=== PATIENT | male | born 1955 | race Caucasian/White ===

== ENCOUNTER 2017-03-16 22:19 | Observation (INO) | payer MEDICARE, OTHER ==
[~2017-03-16] VITALS: Ht 165.1 cm; Wt 80.7 kg
[~2017-03-16 22:19] MED LIST: ANTIBIOTICS; THYROID MED
[2017-03-16] MEDS ORDERED: SOD CHLORIDE 0.9% 1,000 ML IV STA (23:41)
[2017-03-16 23:59] LABS: ADD SCAN DIFF NO
[2017-03-17 00:02] LABS: ABNORMAL IP MESSAGE 1; BASOPHILS % 0.3 % (0.0-2.0); EOSINOPHILS % 0.6 % (0.0-7.0); HEMATOCRIT 24.7 % (42.0-52.0); HEMOGLOBIN 8.5 g/dl (14.0-18.0); LYMPHOCYTES # 0.5 10^3/ul (0.8-2.9); LYMPHOCYTES % 16.3 % (15.0-51.0); MEAN CORPUSCULAR HEMOGLOBIN 33.9 pg (29.0-33.0); MEAN CORPUSCULAR HGB CONC 34.4 g/dl (32.0-37.0); MEAN CORPUSCULAR VOLUME 98.4 fl (82.0-101.0); MEAN PLATELET VOLUME 10.7 fl (7.4-10.4); MONOCYTE # 0.2 10^3/ul (0.3-0.9); MONOCYTES % 7.7 % (0.0-11.0); NEUTROPHIL # 2.3 10^3/ul (1.6-7.5); NEUTROPHILS % 74.5 % (39.0-77.0); PLATELET COUNT 165 10^3/UL (140-415); RED BLOOD COUNT 2.51 10^6/ul (4.70-6.10); RED CELL DISTRIBUTION WIDTH 16.1 % (11.5-14.5); WHITE BLOOD COUNT 3.1 10^3/ul (4.8-10.8)
[2017-03-17 00:27] LABS: PARTIAL THROMBOPLASTIN TIME 31.5 Sec (25.0-35.0)
[2017-03-17 00:29] LABS: INR 1.13; PROTIME 14.5 Sec (12.2-14.2); PT RATIO 1.1
[2017-03-17 00:30] LABS: ALANINE AMINOTRANSFERASE 39 IU/L (13-69); ALBUMIN 4.3 g/dl (3.3-4.9); ALBUMIN/GLOBULIN RATIO 1.43; ALKALINE PHOSPHATASE 110 IU/L (42-121); ANION GAP 18 (8-16); ASPARTATE AMINO TRANSFERASE 30 IU/L (15-46); BILIRUBIN,INDIRECT 1.7 mg/dl (0-1.1); BILIRUBIN,TOTAL 1.7 mg/dl (0.2-1.3); BLOOD UREA NITROGEN 26 mg/dl (7-20); CALCIUM 8.2 mg/dl (8.4-10.2); CARBON DIOXIDE 24 mmol/L (21-31); CHLORIDE 94 mmol/L (97-110); CREATININE 2.11 mg/dl (0.61-1.24); GLUCOSE 178 mg/dl (70-220); SODIUM 133 mmol/L (135-144); TOTAL PROTEIN 7.3 g/dl (6.1-8.1)
[2017-03-17 00:34] LABS: ADD UMIC YES; UR BILIRUBIN (Dip) NEGATIVE (NEGATIVE); UR BLOOD (Dip) 2+ (NEGATIVE); UR CLARITY CLEAR (CLEAR); UR COLOR LT. YELLOW (YELLOW); UR GLUCOSE (Dip) NEGATIVE (NEGATIVE); UR KETONES (Dip) NEGATIVE (NEGATIVE); UR LEUKOCYTE ESTERASE (Dip) NEGATIVE (NEGATIVE); UR NITRITE (Dip) NEGATIVE (NEGATIVE); UR TOTAL PROTEIN (Dip) 1+ (NEGATIVE); UR UROBILINOGEN (Dip) 2.0 E.U./dL (0.1-1.0)
[2017-03-17 00:40] LABS: TROPONIN-I < 0.012 ng/ml (0.00-0.12)
[2017-03-17 00:46] LABS: UR SQUAMOUS EPITHELIAL CELL FEW
[2017-03-17 00:47] LABS: UR BACTERIA RARE
--- NOTE | 2017-03-17 00:48 | RADRPT ---
PROCEDURE: XR Chest. CLINICAL INDICATION: Syncope. TECHNIQUE: Portable AP view of the chest was obtained. COMPARISON: 11/17/2014 FINDINGS: The cardiomediastinal silhouette is mildly enlarged but unchanged. Round noncalcified nodule within the center of the right lung is estimated at 1.6 cm not evident previously, the left lung appears c lear. There is no evidence for pleural effusion, pneumothorax or pulmonary vascular congestion. Th e osseous structures are intact with no evidence for acute abnormality. Calcification within the aor ta is again seen RPTAT:HJJR IMPRESSION: 1. Concern for interval development of a 1.6 cm noncalcified right mid lung nodule compared to the prior examination. Follow-up evaluation is recommended. 2. Stable mild cardiac silhouette enlargement. 3. Aortic atherosclerosis is present. Physician Lavonne Date Time Electronically viewed and signed by Physician Lavonne on 03/17/2017 00:48 /
[2017-03-17] MEDS ORDERED: SOD CHLORIDE 0.9% 1,000 ML IV ONE (02:00)
[2017-03-17] MEDS ORDERED: DOCUSATE SODIUM 100 MG CAP PO PRN (04:30)
[2017-03-17] MEDS ORDERED: NACL 0.9% 3 ML SYG IV SCH (04:30)
[2017-03-17] MEDS ORDERED: ACETAMINOPHEN 325 MG TAB PO PRN (04:30)
[2017-03-17] MEDS ORDERED: ONDANSETRON 4 MG INJ IV PRN (04:30)
[2017-03-17] MEDS ORDERED: BISACODYL (EC) 5 MG TAB PO PRN (04:30)
--- NOTE | 2017-03-17 05:04 | HP ---
Date/Time of Note Date/Time of Note DATE: 03/17/17 TIME: 04:58 Assessment/Plan VTE Prophylaxis VTE Prophylaxis Intervention: SCD's Assessment/Plan Chief Complaint/Hosp Course This is a 61-year-old male being admitted to the telemetry floor for: #1 syncope: Cardiac versus neurovascular versus hypovolemia versus hypoglycemia. The patient denies loss of consciousness or hitting his head, however I do believe that he is a poor historian. At this time I will order a CAT scan of the head without contrast, carotid Doppler ultrasound, and echocardiogram. Patient does appear slightly dehydrated which also could have been the cause. Continue IV fluids. #2 Renal failure: Likely chronic at this time secondary to the creatinine being 2.11. He does not have any prior history or prior creatinine records at her facility. Will hold BP medications at this time secondary to recent syncope. Will consult nephrology. #3 Cancer: Patient did not know exactly will cancer he had but are likely appears he may have underlying leukemia. Will try to obtain further records. Patient is on revlimid, continue meds. #4 lung nodule: This likely appears to be an incidental finding on chest x-ray. Will order a CAT scan of the chest for further evaluation. #5 thyroid disease: We will order TSH continue patient's current levothyroxine. #6 hypertension: We will hold patient's antihypertensives at this time secondary to patient's syncope and low blood pressure on presentation. #7 diabetes mellitus: We will check patient's A1c, as well as blood sugars before meals at bedtime. Hypoglycemia could also be because of his syncope so we will hold his current diabetes medications. #8 DVT and GI prophylaxis: SCDs, Protonix Further treatment strategy will be implemented as per the clinical course Problems: HPI/ROS Admit Date/Time Admit Date/Time Hx of Present Illness Chief complaint: Fall at home This is a 61-year-old male with a history of bone cancer diabetes and thyroid disease who presents to the ED after falling at home. Patient states that he felt lightheaded at home and fell to the ground. He denies hitting his head and denies any loss of consciousness. He does though not completely recall the event. He states that his family was around him at that time. He has had a decreased appetite over the last few days. He also had a fever and cough. Allergies: Daily Medications: See MAR ROS Const: As per HPI Eyes : No pain discharge or redness or change in visual acuity ENT: No pain, sore throat, congestion, congestion, dysphagia or discharge Respiratory: As per patient Cardiovascular: No chest pain, palpitation, PND, or edema GI : no change in appetite, abdominal pain, nausea, vomiting, diarrhea, constipation, or change in the color his stool Genitourinary: No dysuria, hematuria, flank pain , discharge or CVA tenderness Musculoskeletal: No joint pain, back pain, neck pain, restricted range of motion in neck or joints Skin: No rash, bruising or hives Neuro: Patient Endocrine: No polyuria, polydipsia, temperature intolerance Psych: No hallucination, depression, anxiety or suicidal ideation PMH/Family/Social Past Medical History Diabetes mellitus, bone cancer, thyroid disease Past Surgical History Hernia repair Social History Alcohol Use: none Smoking Status: Former smoker Drug Use: none Exam/Review of Systems Vital Signs Vitals Vital Signs Date Time Temp Pulse Resp B/P Pulse Ox O2 Delivery O2 Flow Rate FiO2 03/17/17 03:58 68 22 92/51 99 Room Air 03/16/17 22:26 97.8 Intake and Output 03/16/17 03/16/17 03/17/17 15:00 23:00 07:00 Intake Total 1000 ml Output Total 950 ml Balance 50 ml Exam Exam General: Patient is a well-developed and laying in bed in no acute distress HEENT: Atraumatic, normocephalic. The pupils are equal, round and reactive. Extraocular motor are intact Neck: Supple with full range of motion. No rigidity or meningismus Chest: Nontender Lungs: Clear to auscultation bilaterally no crackles rales or wheezing, dry cough Heart: Normal S1-S2, Regular rhythm and rate. No murmur, S3, or S4 Abdomen: Soft , nontender, nondistended , bowel sounds are present. No guarding no rebound tenderness , Extremities: Normal to inspection, no edema no cyanosis Neurologic: Normal mental status, speech normal, cranial nerves II through XII are intact, motor and sensory are intact, no focal weakness Additional Comments PROCEDURE: XR Chest. CLINICAL INDICATION: Syncope. TECHNIQUE: Portable AP view of the chest was obtained. COMPARISON: 11/17/2014 FINDINGS: The cardiomediastinal silhouette is mildly enlarged but unchanged. Round noncalcified nodule within the center of the right lung is estimated at 1.6 cm not evident previously, the left lung appears clear. There is no evidence for pleural effusion, pneumothorax or pulmonary vascular congestion. The osseous structures are intact with no evidence for acute abnormality. Calcification within the aorta is again seen RPTAT:HJJR IMPRESSION: 1. Concern for interval development of a 1.6 cm noncalcified right mid lung nodule compared to the prior examination. Follow-up evaluation is recommended. 2. Stable mild cardiac silhouette enlargement. 3. Aortic atherosclerosis is present. Physician Lavonne Date Time Electronically viewed and signed by Physician Lavonne on 03/17/2017 00:48 Labs Result Diagram: 03/16/17 2300 03/16/17 2300 Medications Medications Current Medications Sodium Chloride (NS) 1,000 ml @ 75 mls/hr [id number] IV ; Start 03/17/17 at 04:14 Ondansetron HCl (Zofran Inj) 4 mg Q6H PRN IV NAUSEA AND/OR VOMITING; Start at 04:30 Acetaminophen (Tylenol Tab) 650 mg Q6H PRN PO PAIN LEVEL 1-3 OR FEVER; Start at 04:30 Docusate Sodium (Colace) 100 mg Q12H PRN PO CONSTIPATION; Start 03/17/17 at 04: 30 Bisacodyl (Dulcolax) 5 mg DAILY PRN PO CONSTIPATION; Start 03/17/17 at 04:30 Pantoprazole (Protonix Iv) 40 mg DAILY@06 IV ; Start 03/17/17 at 06:00 KULDIP RASHEED Mar 17, 2017 05:04
[2017-03-17] MEDS: PANTOPRAZOLE 40 MG INJ IV SCH (05:31)
[2017-03-17] MEDS: SOD CHLORIDE 0.9% 1,000 ML IV SCH ×2 (07:23→17:34)
[2017-03-17] MEDS ORDERED: AMLO-218 PO (08:25)
[2017-03-17] MEDS ORDERED: METF500T4 PO (08:25)
[2017-03-17] MEDS ORDERED: PSEU30TA38 PO (08:25)
[2017-03-17] MEDS ORDERED: CARV6.25 PO (08:25)
[2017-03-17] MEDS ORDERED: ASPI-664 PO (08:25)
[2017-03-17] MEDS ORDERED: FER325 PO (08:25)
[2017-03-17] MEDS ORDERED: LEVO75TA5 PO (08:25)
[2017-03-17] MEDS ORDERED: KET2CR15 TOP (08:25)
[2017-03-17] MEDS ORDERED: CHLO25TA13 PO (08:25)
[2017-03-17] MEDS ORDERED: LENA20CA PO (08:25)
[2017-03-17] MEDS ORDERED: GLIP5TAB13 PO (08:25)
[2017-03-17] MEDS ORDERED: LOVA20TA PO (08:25)
[2017-03-17] MEDS ORDERED: LOSA50TA6 PO (08:25)
--- NOTE | 2017-03-17 08:33 | RADRPT ---
PROCEDURE: Carotid ultrasound CLINICAL INDICATION: Syncope, carotid bruits TECHNIQUE: Luciano scale, color doppler, spectral doppler ultrasound of the bilateral carotid and cassidy tebral arteries. This study indirectly references the measurement of the distal ICA diameter as the denominator for s tenosis measurement. Validated velocity measurements with angiographic measurements, velocity criter ia are extrapolated from diameter data as defined by: *Cartoid artery stenosis: luciano-scale and Doppl er US diagnosis. Society of Radiologists in Ultrasound Consensus Conference. Radiology 2003; 229: 34 0-346. SRU Consensus Conference Criteria for the Diagnosis of Carotid Artery Stenosis* Degree of Stenosis, % ICA PSV, cm/sec Plaque Estimate, % ICA/CCA PSV Ratio Normal <125 None <2.0 <50 <125 <50 <2.0 50 69 125-230 >50 2.0-4.0 >70 but less than near occlusion >230 >50 <4.0 Near occlusion High, low, or undetectable Visible Variable Total occlusion Undetectable Visible, no detectable lumen Not applicable COMPARISON: No prior studies are available for comparison. FINDINGS: Location Right LOG004 cm/sec Prox ICA 77 cm/sec Mid ICA96 cm/sec Dist ICA79 cm/sec LZK116 cm/sec ICA/CCA0.9 Left CCA98 cm/sec Prox ICA 72 cm/sec Mid ICA74 cm/sec Dist ICA71 cm/sec ECA89 cm/sec ICA/CCA0.8 Plaque burden: No significant plaque is seen. Antegrade flow is seen within the vertebral arteries bilaterally. IMPRESSION: No evidence of a hemodynamically significant carotid stenosis. RPTAT: AADD .Kulwinder Stevenson MD, MD Date Time Electronically viewed and signed by .Kulwinder Stevenson MD, MD on 03/17/2017 08:33 .B/
--- NOTE | 2017-03-17 09:24 | RADRPT ---
PROCEDURE: CT Brain without contrast. CLINICAL INDICATION: Syncope. TECHNIQUE: A CT of the brain was performed on a multidetector CT scanner utilizing axial sections from the skull base through the vertex without contrast. Images were reviewed on a high-resolution [employer] workstation. Exam CTDI = mGy and the DLP = mGy-cm. One or the following dose reduction techniques were used: -Automated exposure control. -Adjustment of the mA and/or KV according to patient's size. -Use of iterative reconstruction technique COMPARISON: None available FINDINGS: Mild diffuse cerebral and cerebellar atrophy is present. There is proportionate dilatation of the v entricular system and sulci in a symmetric fashion. There is prominence of the extraaxial spaces sec ondary to atrophy. There is no evidence of intracranial hemorrhage, mass effect or midline shift. N o abnormal intra-axial or extra-axial fluid collections are seen. The density of the brain is yonatan l and the ortega/white matter differentiation is well preserved. Mild patchy diffuse deep white matte r microangiopathic ischemic change is seen. There is minimal mucosal thickening in the sphenoid sin uses suggesting inflammatory change. Mastoid air cells are aerated. The osseous calvarium appears intact.. Vascular calcifications are identified. IMPRESSION: 1. Mild age related involutional change. 2. Microangiopathic ischemic change. 3. Mild inflammatory changes in the sphenoid sinuses. 4. Vascular calcifications. RPTAT: AACC Physician Musa Date Time Electronically viewed and signed by Physician Musa on 03/17/2017 09:24 /
[2017-03-17] MEDS ORDERED: LENALIDOMIDE 25 MG PO SCH (09:30)
--- NOTE | 2017-03-17 10:27 | RADRPT ---
PROCEDURE: CT Chest without contrast. CLINICAL INDICATION: Cough. TECHNIQUE: Multiple contiguous helical CT images of the chest were obtained without the administra tion of intravenous contrast. Coronal and sagittal reformatted images were obtained from the source images. CTDIvol (mGy): 15.39; Total Exam DLP (mGy-cm): 646.93. One or more of the following dose reduction techniques were utilized: - Automated exposure control. - Adjustment of the mA and/or kV according to patient size. - Use of iterative reconstruction technique. COMPARISON: Chest x-ray 03/16/2017. FINDINGS: Limited imaging of the lower neck is unremarkable. The heart is mildly enlarged. There is no pericardial effusion. There is no mediastinal, hilar or axillary lymphadenopathy. The thoracic aorta is normal in caliber with atherosclerotic calcificatio n. Coronary artery calcification is present. The pulmonary arteries are not enlarged. There is a small cluster of patchy confluent tree in bud nodules posteriorly within the right upper lobe compatible with bronchiolitis. Similar clusters are seen within the lingula and bilateral lower lobes. There is no dominant lobar consolidation. There is no concerning pulmonary nodule. There is no pleural effusion. Mild dilatation of the airways of the lung bases is observed along with mil d bronchial wall thickening. Limited imaging of the upper abdomen demonstrates a small simple cyst of the right kidney. Bone density is decreased. The density of the L1 vertebral body is approximately 56 HU. Degenerati ve changes of the spine are present. Chest wall soft tissues are unremarkable. IMPRESSION: Multifocal bronchiolitis with patchy confluent nodules posteriorly within the right upper lobe corre sponding to the abnormality seen on recent chest x-ray. Mild dilatation and bronchial wall thickeni ng of the lower lobe airways is also observed. Follow-up may be obtained in 6 months to ensure reso lution. No evidence of mass or lymphadenopathy of the chest. Mild cardiac enlargement and atherosclerosis. Low bone density with multilevel degenerative changes of the spine. RPTAT: HLST .Alee Decker MD, Date Time Electronically viewed and signed by .Alee Decker MD, MD on 03/17/2017 10:26 .T/
--- NOTE | 2017-03-17 10:50 | RADRPT ---
PROCEDURE: Renal US. CLINICAL INDICATION: Renal insufficiency. TECHNIQUE: Multiple sonographic images of the kidneys were obtained. The images were reviewed on a PACS workstation. COMPARISON: No prior studies are available for comparison. FINDINGS: The right kidney measures 12.1 cm. The left kidney measures 11.2 cm. The kidneys demonstrate normal echogenicity. A 2.9 cm simple cyst is seen in the right kidney. No masses, stones or hydronephrosi s are identified. The bladder is filled with a moderate amount of urine and has an unremarkable appearance. IMPRESSION: 2.9 cm simple cyst in the right kidney. Otherwise, unremarkable kidneys. RPTAT: AA .Max Herron MD, Date Time Electronically viewed and signed by .Max Herron MD, MD on 03/17/2017 10:49 .P/
[2017-03-17] MEDS: [UNRECOGNIZED DRUG - REMARK] XX SCH ×2 (12:39→20:00)
[2017-03-17 13:27] LABS: CALCIUM 8.3 mg/dl (8.4-10.2); CREATININE 1.67 mg/dl (0.61-1.24)
[2017-03-17 14:35] VITALS: TEMP 98.2
[2017-03-17 14:45] VITALS: BP 111/54; PULSE 78; RESP 20; Ht 165.1 cm; Wt 80.7 kg
[2017-03-17] MEDS ORDERED: POTASSIUM CHLORIDE (SR) 20 MEQ TAB PO STA (16:00)
[2017-03-17 16:16] VITALS: PULSE 82
--- NOTE | 2017-03-17 17:21 | RADRPT ---
Echocardiogram Report Patient Name: SABRINA MILTON Gender: Male Date: 1955 Study Date: 17-Mar-2017 Edgerman: Shiv Quiles [facility] Location: E13 Ref. Physician: KULDIP RASHEED Quality: Good Procedures: Transthoracic echocardiogram with complete 2D, M-Mode, and doppler examination. Indications: Syncope. 2D/M Mode Doppler Measurement Value Normal Ranges Measurement Value Normal Ranges LVIDd 2D 3.8 3.5 - 5.6 cm HERNANDEZ Vmax 2.3 cm2 LVIDs 2D 3.1 2.1 - 4.1 cm HERNANDEZ VTI 2.3 cm2 LVPWd 2D 1.2 0.6 - 1.1 cm AV Peak Colin 1.4 m/sec IVSd 2D 1.2 0.6 - 1.1 cm AV Peak PG 8.1 mmHg AoR Diam 2D 3.0 2.0 - 3.7 cm LVOT Peak Colin 0.9 m/sec EDV 2D 63.2 cm3 LVOT Peak PG 3.4 mmHg ESV 2D 30.1 cm3 MV E Peak Colin 1.1 m/sec LA Dimen 2D 4.0 2.3 - 4.0 cm MV A Peak Colin 1.2 m/sec LVOT Diam 2.2 cm MV E/A 0.9 MV Decel Time 224 msec MV Decel Garfield 5 MV E/A 0.9 TR Peak Colin 2.9 m/sec TR Peak PG 32.5 mmHg RVSP 35.5 mmHg Findings Left Ventricle: Normal left ventricular systolic function. Normal left ventricular cavity size. Mild concentric left ventricular hypertrophy. Ejection fraction is visually estimated at 55 %. Tissue Doppler/Mitral Doppler indices are consistent with impaired relaxation (Stage I diastolic dysfunction). Right Ventricle: Normal right ventricular size. Normal right ventricular systolic function. Left Atrium: There is mild enlargement of left atrium. Right Atrium: The right atrium is normal in size. Mitral Valve: Mitral valve leaflets appear mildly thickened. Mild mitral annular calcification. Mild mitral valve regurgitation. Aortic Valve: No significant aortic stenosis or insufficiency. Aortic cusps appear mildly calcified. Tricuspid Valve: Normal appearance of the tricuspid valve. Estimated peak PA systolic pressure 35 mmHg. There is mild tricuspid regurgitation. Pericardium: Normal pericardium with no significant pericardial effusion. Aorta: Normal aortic root. IVC: Normal size and normal respiratory collapse consistent with normal right atrial pressure. Pulmonary Artery: Normal pulmonary artery size. Conclusions Normal left ventricular systolic function. Normal left ventricular cavity size. Mild concentric left ventricular hypertrophy. Ejection fraction is visually estimated at 55 %. Tissue Doppler/Mitral Doppler indices are consistent with impaired relaxation (Stage I diastolic dysfunction). Normal right ventricular size. Normal right ventricular systolic function. There is mild enlargement of left atrium. The right atrium is normal in size. Mild mitral valve regurgitation. No significant aortic stenosis or insufficiency. Estimated peak PA systolic pressure 35 mmHg. There is mild tricuspid regurgitation. Normal pericardium with no significant pericardial effusion. Electronically Signed By: Ye Garay 17-Mar-2017 17:20:40 -0700 Patient Name: SABRINA MILTON Study Date: 17-Mar-2017 [id number]
--- NOTE | 2017-03-17 17:55 | CONS ---
DATE OF ADMISSION: 03/17/2017 DATE OF CONSULTATION: 03/17/2017 TYPE OF CONSULTATION: Nephrology. REASON FOR CONSULTATION: Acute kidney injury. REQUESTING PHYSICIAN: Dr. Taylor. HISTORY OF PRESENT ILLNESS: This is a 61-year-old male with a past medical history of hypothyroidis m, history of diabetes, previous history of cancer, possible leukemia who presented to [facility] after suffering a mechanical fall. The patient states that prior to the fall he fel t lightheaded. He did not lose any consciousness and did not hit his head. Given the change in sta tus, the patient came to the emergency room for evaluation. Upon arrival, the patient had laborator y data drawn, which showed a sodium 133, potassium 3.0, BUN 26, creatinine 2.1 and white count 3.1. We got a CT scan of the head which showed no mass or lymphadenopathy. There was evidence of nodule s in the right lung consistent with multifocal bronchiolitis. In the emergency room, the patient wa s given IV fluids and admitted to telemetry for further evaluation. In terms of the patient's renal history, per patient, he states that he has some kidney abnormalitie s but does not know what his baseline renal function or baseline creatinine is. He denies any recen t rashes, denied any hemoptysis, hemetemesis or hematochezia. PAST MEDICAL HISTORY: As stated above, history of diabetes, history of hypertension, history of hyp othyroidism and possible history of leukemia. PAST SURGICAL HISTORY: Hernia repair. FAMILY HISTORY: Noncontributory. SOCIAL HISTORY: Does not drink, smoke or do drugs. MEDICATIONS: The patient's medications have been reviewed. REVIEW OF SYSTEMS: A 14-point review of systems was conducted. Pertinent positives stated in HPI, otherwise negative. PHYSICAL EXAMINATION: VITAL SIGNS: Blood pressure is 108/60, respirations 18, pulse 81, temperature 98.0. HEENT: Head is normocephalic. Pupils are reactive to light. NECK: Supple. HEART: Regular rate. LUNGS: Show diminished breath sounds at base, otherwise clear. ABDOMEN: Soft, nontender to palpation without rebound or guarding. EXTREMITIES: Negative for clubbing, cyanosis, edema. DERMATOLOGIC: No rashes. MUSCULOSKELETAL: No joint effusions. NEUROLOGIC: No focal deficits. LABORATORY DATA: Shows white count 3.1, hematocrit 24.7, platelet count 165. Sodium 130, potassium 3.0 , BUN 22, creatinine 1.67, calcium 8.3. Urinalysis shows RBCs 2 to 5, no WBCs, +1 proteinuria . ASSESSMENT AND PLAN: This is a 61-year-old male who presents with: 1. Nonoliguric acute kidney injury on top of chronic kidney disease with unknown baseline creatinin e. Etiology of acute kidney injury is likely secondary to hemodynamics possible volume depletion du e to diuretic therapy, angiotensin receptor sean. The patient's initial urinalysis is bland. Sh ows no active sediment. The patient is status post IV fluids. Currently, the plan at this point is to repeat a BMP to see if there is any improvement after receiving IV fluids. Will check a renal u ltrasound to evaluate renal parenchyma. Will otherwise continue supportive care. We will otherwise continue current treatment plan. Would hold angiotensin receptor sean and diuretic therapy. Ot herwise, continue supportive care, renally dose all meds, avoid nephrotoxins. 2. Hypokalemia. Etiology may be secondary to his Dyazide effect. We will replete with potassium c hloride. 3. Hyponatremia, etiology is secondary Dyazide effect in conjunction with acute kidney injury and/o r volume depletion. The patient is status post IV fluids. Will repeat a renal panel. 4. Anemia. Monitor hemoglobin and hematocrit levels. 5. Mineral bone disorder. We will monitor calcium and phosphorus levels. 6. Syncope, etiology may be secondary to volume depletion versus vasovagal. The patient is status post CT scan of the brain shows no acute findings. The patient will be admitted to telemetry for wo rkup ongoing. A 2D echocardiogram with ultrasound. Consider a cardiology evaluation. 7. History of malignancy. Etiology is unclear. We will attempt to obtain old medical records. 8. Lung nodule, unclear etiology. Continue to monitor. Follow up CT scan of the chest. Follow up with Pulmonary. 9. Hypothyroidism. Continue Synthroid. 10. Diabetes. Continue Accu-Cheks, insulin sliding scale. Thank you, Dr. Thompson, for this interesting consultation. It will be a pleasure to follow patient wi th you throughout the hospital course. Dictated By: MERY MANRIQUEZ/DOUG Conf#: [id number] DID#: [id number]
[2017-03-17 20:00] VITALS: BP 105/56; RESP 18
[2017-03-17 20:02] VITALS: PULSE 69
[2017-03-17] MEDS: INSULIN ASPART [NOVOLOG] 3 ML PEN SC SCH (21:00)
[2017-03-17] MEDS: ATORVASTATIN 10 MG TAB PO SCH (21:04)
[2017-03-17] MEDS ORDERED: GLUCOSE GEL 15 GRAM TUBE BUCCAL PRN (21:30)
[2017-03-17] MEDS ORDERED: GLUCAGON 1 MG INJ IM PRN (21:30)
[2017-03-17] MEDS ORDERED: GLUCOSE GEL 15 GRAM TUBE PO PRN ×2 (21:30)
[2017-03-17] MEDS ORDERED: DEXTROSE 50% 50 ML SYRINGE IV PRN ×2 (21:30)
[2017-03-18] VITALS (13 sets, daily range): BP systolic 103–129; BP diastolic 53–66; PULSE 77–94; RESP 16–20
[2017-03-18] MEDS: SOD CHLORIDE 0.9% 1,000 ML IV SCH ×3 (00:33→15:10)
[2017-03-18 01:45] LABS: ADD UMIC YES; UR BILIRUBIN (Dip) NEGATIVE (NEGATIVE); UR BLOOD (Dip) 1+ (NEGATIVE); UR CLARITY CLEAR (CLEAR); UR COLOR LT. YELLOW (YELLOW); UR GLUCOSE (Dip) NEGATIVE (NEGATIVE); UR KETONES (Dip) NEGATIVE (NEGATIVE); UR LEUKOCYTE ESTERASE (Dip) NEGATIVE (NEGATIVE); UR NITRITE (Dip) NEGATIVE (NEGATIVE); UR TOTAL PROTEIN (Dip) TRACE (NEGATIVE); UR UROBILINOGEN (Dip) 1.0 E.U./dL (0.1-1.0)
[2017-03-18 01:59] LABS: UR SQUAMOUS EPITHELIAL CELL RARE; URINE RBCS 0-2 /HPF (0)
[2017-03-18] MEDS: ACCU-CHEK XX SCH (02:00)
[2017-03-18] MEDS: [UNRECOGNIZED DRUG - REMARK] XX SCH ×3 (04:00→20:00)
[2017-03-18] MEDS: LEVOTHYROXINE 75 MCG TAB PO SCH (06:24)
[2017-03-18] MEDS: PANTOPRAZOLE 40 MG INJ IV SCH (06:24)
[2017-03-18 06:26] LABS: ADD SCAN DIFF NO
[2017-03-18 06:28] LABS: BASOPHILS % 0.3 % (0.0-2.0); EOSINOPHILS # 0.1 10^3/ul (0.0-0.5); EOSINOPHILS % 4.7 % (0.0-7.0); HEMATOCRIT 27.3 % (42.0-52.0); HEMOGLOBIN 9.1 g/dl (14.0-18.0); LYMPHOCYTES # 0.7 10^3/ul (0.8-2.9); MEAN CORPUSCULAR HEMOGLOBIN 32.9 pg (29.0-33.0); MEAN CORPUSCULAR HGB CONC 33.3 g/dl (32.0-37.0); MEAN CORPUSCULAR VOLUME 98.6 fl (82.0-101.0); MONOCYTE # 0.5 10^3/ul (0.3-0.9); MONOCYTES % 15.3 % (0.0-11.0); NEUTROPHIL # 1.7 10^3/ul (1.6-7.5); PLATELET COUNT 190 10^3/UL (140-415); RED BLOOD COUNT 2.77 10^6/ul (4.70-6.10); RED CELL DISTRIBUTION WIDTH 16.3 % (11.5-14.5)
[2017-03-18 07:27] LABS: ALBUMIN 4.4 g/dl (3.3-4.9); ALBUMIN/GLOBULIN RATIO 1.51; BILIRUBIN,INDIRECT 0.5 mg/dl (0-1.1); BILIRUBIN,TOTAL 0.5 mg/dl (0.2-1.3); CALCIUM 8.3 mg/dl (8.4-10.2); CREATININE 1.59 mg/dl (0.61-1.24); TOTAL PROTEIN 7.3 g/dl (6.1-8.1)
[2017-03-18] MEDS: INSULIN ASPART [NOVOLOG] 3 ML PEN SC SCH ×4 (07:55→20:31)
[2017-03-18] MEDS: FERROUS SULFATE (EC) 325 MG TAB PO SCH (08:11)
[2017-03-18] MEDS: ASPIRIN (EC) 81 MG TAB PO SCH (08:12)
[2017-03-18] MEDS: AMLODIPINE 10 MG TAB PO SCH (08:12)
[2017-03-18] MEDS ORDERED: POTASSIUM CHLORIDE (SR) 20 MEQ TAB PO STA (08:54)
--- NOTE | 2017-03-18 11:07 | PN ---
DATE: 03/18/2017 SUBJECTIVE: The patient is stable, no acute events overnight. No fevers, chills, nausea, vomiting, no shortness of breath. OBJECTIVE: VITAL SIGNS: Blood pressure 108/66, respiration 18, pulse 80, temperature 99.2. HEENT: Head is normocephalic. NECK: Supple. HEART: Regular rate. LUNGS: Show diminished breath sounds at the base, otherwise clear. ABDOMEN: Soft, nontender to palpation. No rebound or guarding. EXTREMITIES: Negative for clubbing, cyanosis. No edema. DERMATOLOGIC: No rashes. MUSCULOSKELETAL: No joint effusions. NEUROLOGIC: No change in exam. MEDICATIONS: Reviewed. LABORATORY DATA: Shows sodium 139, potassium 3.0, chloride 105, BUN 16, creatinine 1.59. White cou nt 3.0, hemoglobin 9.1, hematocrit 27.3, platelet count is 190. The patient's renal ultrasound show s unremarkable kidneys, normal echogenicity. ASSESSMENT AND PLAN: 1. Nonoliguric acute kidney injury on top of chronic kidney disease with unknown baseline creatinin e. Etiology is likely secondary to hemodynamics, prerenal volume depletion secondary to diuretic th erapy, and ARB effect. The patient's urinalysis is bland. Renal ultrasound shows normal echogenici ty, no obstruction. The patient's renal function has been improving with IV fluids. At this point, continue current treatment plan, supportive care, renally dose medications. Continue IV fluids for another 24 hours. 2. Hypokalemia, likely due to the thiazide diuretics. Will continue to replete with potassium chlo ride. 3. Hyponatremia secondary to volume depletion. The patient is clinically improved with IV fluids, continue to monitor. 4. Anemia. Continue to monitor hemoglobin and hematocrit levels. 5. Mineral bone disorder. Continue to monitor calcium and phosphorus levels. 6. Syncope, etiology is unclear, possibly from volume depletion versus vasovagal. The patient is c linically improved. CT scan shows no acute findings. Continue medical management. Follow up with telemetry. 7. History of malignancy, unclear if leukemia. Will continue to monitor. Follow up with primary t eam. 8. Lung nodule, continue to monitor. 9. Hypothyroidism. Continue Synthroid. 10. Diabetes. Continue Accu-Cheks and insulin sliding scale. Dictated By: MERY ALEJANDRO DO NR/NTS Conf#: [id number] [facility]#: [id number]
[2017-03-18] MEDS ORDERED: ASPI-664 PO (13:09)
[2017-03-18] MEDS ORDERED: ATOR10TA65 PO (13:09)
[2017-03-18] MEDS ORDERED: FER325 PO (13:09)
[2017-03-18] MEDS ORDERED: AMLO-218 PO (13:09)
[2017-03-18 13:11] LABS: CHOL/HDL RATIO 6.4 RATIO; MAGNESIUM 2.3 mg/dl (1.7-2.5)
--- NOTE | 2017-03-18 13:13 | PDOCDIS ---
Discharge Instructions DIAGNOSIS Discharge Diagnosis: 1. Suspect syncope 2. Acute kidney injury 3. Hypokalemia CONDITION Patient Condition: Stable HOME CARE INSTRUCTIONS: Special Diet: renal, 1800 neeraj ADA FOLLOW UP/APPOINTMENTS Appointments 1. Follow up with Dr. Raymond Parisi in one week ESPERANZA STEVENS Mar 18, 2017 13:13
[2017-03-18] MEDS ORDERED: UDROBAC PO (13:40)
[2017-03-18] MEDS ORDERED: AZIT500T2 PO (13:40)
[2017-03-18 13:42] LABS: THYROID STIMULATING HORMONE 3.85 MIU/L (0.465-4.680)
[2017-03-18] MEDS: GUAIFENESIN/CODEINE 5ML CUP PO PRN ×2 (15:08→20:51)
[2017-03-18] MEDS: AZITHROMYCIN 250 MG TAB PO SCH (15:09)
--- NOTE | 2017-03-18 16:14 | PN ---
Date/Time of Note Date/Time of Note DATE: 03/18/17 TIME: 16:07 Assessment/Plan VTE Prophylaxis VTE Prophylaxis Intervention: SCD's Lines/Catheters IV Catheter Type (from [facility]): Peripheral IV Urinary Cath still in place: No Assessment/Plan Chief Complaint/Hosp Course Assessment and plan 1. Suspect possible syncope. Patient denied any loss of consciousness but did report some dizziness when he reportedly fell to the floor. Of note CT scan of the brain was negative for any acute intracranial process and additionally carotid Doppler study showed no evidence of hemodynamically significant carotid stenosis. Additionally echocardiogram did show preserved ejection fraction with stage I diastolic dysfunction. Will continue to monitor for now. Appears improved at this time. 2. Acute renal failure. Suspect acute on chronic. Medications to be renally dosed. 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 3. Reported history of cancer. Suspect leukemia. Patient resumed on his home medication of Revlimid 4. Lung nodule. CT scan of patient's chest did show multifocal bronchiolitis with patchy confluent nodules posteriorly within the right upper lung lobe. Recommendation for follow-up imaging in 6 months to ensure resolution. No evidence of mass or lymphadenopathy. 5. Essential hypertension. Continue antihypertensives and adjust as needed 6. Dyspnea. Continue on statin medication 7. Diabetes. Continue insulin regimen. 8. Hypothyroidism. Continue on Synthroid 9. Hypokalemia. Will replete and check level in a.m. Disposition plan: Monitor renal panel. Slowly improving. Await for further clinical improvement. Discharged in medically stable and cleared by consultants Discussed plan of care with Problems: Subjective 24 Hr Interval Summary Free Text/Dictation Resting at this time. No apparent distress. No further reports of syncope Exam/Review of Systems Vital Signs Vitals Vital Signs Date Time Temp Pulse Resp B/P Pulse Ox O2 Delivery O2 Flow Rate FiO2 03/18/17 15:13 97.8 84 18 115/61 97 03/17/17 14:45 Room Air Intake and Output 03/17/17 03/17/17 03/18/17 15:00 23:00 07:00 Intake Total 875 ml 1275 ml Output Total 1200 ml Balance 875 ml 75 ml Exam Constitutional: alert, oriented Psych: nl mood/affect Head: normocephalic Eyes: nl conjunctiva Neck: supple, No jvd Respiratory: clear to auscultation, normal air movement Cardiovascular: regular rate and rhythm Gastrointestinal: non-tender, soft Musculoskeletal: nl extremities to inspection Extremities: normal pulses 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 YELLOW Urine Clarity CLEAR Urine pH 7.5 Urine Specific [place] 1.015 Urine Ketones NEGATIVE Urine Nitrite NEGATIVE Urine Bilirubin NEGATIVE Urine Urobilinogen 1.0 E.U./dL Urine Leukocyte Esterase NEGATIVE Urine Microscopic RBC 0-2 Urine Microscopic WBC NONE SEEN Urine Squamous Epithelial Cells RARE Urine Hemoglobin 1+ H Urine Random Creatinine 35.10 Urine Random Sodium 129 H Urine Glucose NEGATIVE Urine Total Protein 57.0 H White Blood Count 3.0 L Red Blood Count 2.77 L Hemoglobin 9.1 L Hematocrit 27.3 L Mean Corpuscular Volume 98.6 Mean Corpuscular Hemoglobin 32.9 Mean Corpuscular Hemoglobin Concent 33.3 Red Cell Distribution Width 16.3 H Platelet Count 190 Mean Platelet Volume 10.0 Neutrophils % 57.0 Lymphocytes % 22.0 Monocytes % 15.3 H Eosinophils % 4.7 Basophils % 0.3 Nucleated Red Blood Cells % 0.0 Neutrophils # 1.7 Lymphocytes # 0.7 L Monocytes # 0.5 Eosinophils # 0.1 Basophils # 0.0 Nucleated Red Blood Cells # 0.0 Sodium Level 139 Potassium Level 3.0 L Chloride Level 105 Carbon Dioxide Level 25 Anion Gap 12 Blood Urea Nitrogen 16 Creatinine 1.59 H Glucose Level 115 Hemoglobin A1c 5.6 Calcium Level 8.3 L Magnesium Level 2.3 Total Bilirubin 0.5 Direct Bilirubin 0.00 Indirect Bilirubin 0.5 Aspartate Amino Transf (AST/SGOT) 26 Alanine Aminotransferase (ALT/SGPT) 44 Alkaline Phosphatase 136 H Total Protein 7.3 Albumin 4.4 Globulin 2.90 Albumin/Globulin Ratio 1.51 Triglycerides Level 183 H Cholesterol Level 129 LDL Cholesterol, Calculated 72 HDL Cholesterol 20 L Cholesterol/HDL Ratio 6.4 Thyroid Stimulating Hormone (TSH) 3.850 Test 03/18/17 12:39 Bedside Glucose 118 Medications Medications Current Medications Sodium Chloride (NS) 1,000 ml @ 75 mls/hr [id number] IV Last administered on 03/18 15:10; Admin Dose 75 MLS/HR; Start 03/17/17 at 04:14 Ondansetron HCl (Zofran Inj) 4 mg Q6H PRN IV NAUSEA AND/OR VOMITING; Start at 04:30 Acetaminophen (Tylenol Tab) 650 mg Q6H PRN PO PAIN LEVEL 1-3 OR FEVER; Start at 04:30 Docusate Sodium (Colace) 100 mg Q12H PRN PO CONSTIPATION; Start 03/17/17 at 04: 30 Bisacodyl (Dulcolax) 5 mg DAILY PRN PO CONSTIPATION; Start 03/17/17 at 04:30 Pantoprazole (Protonix Iv) 40 mg DAILY@06 IV Last administered on 03/18/17 06: 24; Admin Dose 40 MG; Start 03/17/17 at 06:00 Amlodipine Besylate (Norvasc) 10 mg DAILY PO Last administered on 03/18/17 08: 12; Admin Dose 10 MG; Start 03/18/17 at 09:00 Aspirin (Halfprin) 81 mg DAILY PO Last administered on 03/18/17 08:12; Admin Dose 81 MG; Start 03/18/17 at 09:00 Ferrous Sulfate (Ferrous Sulfate (Ec)) 325 mg DAILY PO Last administered on 08:11; Admin Dose 325 MG; Start 03/18/17 at 09:00 Miscellaneous Information 25 mg DAILY PO ; Start 03/17/17 at 09:30; Status UNV Atorvastatin Calcium (Lipitor) 10 mg DAILY@21 PO Last administered on 21:04; Admin Dose 10 MG; Start 03/17/17 at 21:00 Miscellaneous Information (*Order Clarification Bulletin) PT TO USE REVLIMID RX TO [facility]... Q8H XX Last administered on 03/17/17 12:39; Admin Dose 1 EA; Start 03/17/17 at 12:00 Diagnostic Test (Pha) (Accu-Chek) 1 ea 02 XX ; Start 03/18/17 at 02:00 Miscellaneous Information 1 ea NOTE XX ; Start 03/17/17 at 21:30 Glucose (Glutose) 15 gm Q15M PRN PO DECREASED GLUCOSE; Start 03/17/17 at 21:30 Glucose (Glutose) 22.5 gm Q15M PRN PO DECREASED GLUCOSE; Start 03/17/17 at 21: 30 Dextrose (D50w Syringe) 25 ml Q15M PRN IV DECREASED GLUCOSE; Start 03/17/17 at 21:30 Dextrose (D50w Syringe) 50 ml Q15M PRN IV DECREASED GLUCOSE; Start 03/17/17 at 21:30 Glucagon (Glucagen) 1 mg Q15M PRN IM DECREASED GLUCOSE; Start 03/17/17 at 21:30 Glucose (Glutose) 15 gm Q15M PRN BUCCAL DECREASED GLUCOSE; Start 03/17/17 at 21 :30 Guaifenesin/ Codeine Phosphate (Robitussin Ac Liquid Cup) 10 ml Q4H PRN PO cough Last administered on 03/18/17 15:08; Admin Dose 10 ML; Start 03/18/17 at 14:00 Azithromycin (Zithromax) 500 mg DAILY PO Last administered on 03/18/17 15:09; Admin Dose 500 MG; Start 03/18/17 at 14:00 ESPERANZA STEVENS Mar 18, 2017 16:14
[2017-03-18] MEDS: ATORVASTATIN 10 MG TAB PO SCH (20:51)
[2017-03-19] VITALS (9 sets, daily range): BP systolic 116–140; BP diastolic 61–74; PULSE 84–116; RESP 17–19
[2017-03-19] MEDS: ACCU-CHEK XX SCH (02:00)
[2017-03-19] MEDS: SOD CHLORIDE 0.9% 1,000 ML IV SCH (04:10)
[2017-03-19] MEDS ORDERED: PANTOPRAZOLE (EC) 40 MG TAB PO SCH (06:00)
[2017-03-19 08:18] LABS: CALCIUM 8.1 mg/dl (8.4-10.2); CREATININE 1.73 mg/dl (0.61-1.24); MAGNESIUM 2.1 mg/dl (1.7-2.5); PHOSPHORUS 2.6 mg/dl (2.5-4.9)
[2017-03-19 08:54] LABS: POTASSIUM 2.9 mmol/L (3.5-5.1)
[2017-03-19] MEDS: [UNRECOGNIZED DRUG - REMARK] XX SCH ×2 (09:00→12:00)
[2017-03-19] MEDS: INSULIN ASPART [NOVOLOG] 3 ML PEN SC SCH ×3 (09:13→17:45)
[2017-03-19] MEDS: ASPIRIN (EC) 81 MG TAB PO SCH (09:24)
[2017-03-19] MEDS: AMLODIPINE 10 MG TAB PO SCH (09:24)
[2017-03-19] MEDS: LEVOTHYROXINE 75 MCG TAB PO SCH (09:24)
[2017-03-19] MEDS: FERROUS SULFATE (EC) 325 MG TAB PO SCH (09:24)
[2017-03-19] MEDS: AZITHROMYCIN 250 MG TAB PO SCH (09:24)
--- NOTE | 2017-03-19 10:00 | PN ---
DATE: 03/19/2017 SUBJECTIVE: The patient is stable, no acute events overnight. No fevers, chills, nausea, vomiting. No shortness of breath. OBJECTIVE: VITAL SIGNS: Blood pressure is 116/61, respirations 17, pulse 86, temperature 98.0. HEENT: Head is normocephalic. NECK: Supple. HEART: Regular rate. LUNGS: Show diminished breath sounds at the bases. ABDOMEN: Soft, nontender to palpation. No rebound or guarding. EXTREMITIES: Negative for clubbing, cyanosis. No edema. DERMATOLOGIC: No rashes. MUSCULOSKELETAL: No joint effusions. NEUROLOGIC: No change in exam. MEDICATIONS: The patient's medications have been reviewed. LABORATORY DATA: Currently pending. ASSESSMENT AND PLAN: 1. Nonoliguric acute kidney injury on top of chronic kidney disease with unknown baseline creatinin e. Etiology is secondary to hemodynamics from volume depletion, diuretic use and ARB effect. The p atient's renal function has been improving. Plan at this point is to discontinue IV fluids. We shaheen l follow up renal panel. Otherwise, continue supportive care, renally dose all meds, avoid nephroto xins. 2. Hypokalemia, likely due to diuretic therapy. The patient is status post potassium chloride supp lementation. Continue to monitor. 3. Anemia. Continue to monitor hemoglobin and hematocrit levels. 4. Mineral bone disorder. Continue to monitor calcium and phosphorus levels. 5. Syncope, etiology is unclear, possibly from volume depletion. The patient's workup has been neg ative to date. We will continue to monitor. 6. History of leukemia. Continue to monitor. Follow up with patient's outpatient oncologist. 7. Lung nodule, continue to observe. 8. Hypothyroidism. Continue Synthroid. 9. Diabetes. Continue Accu-Cheks and insulin sliding scale. 10. Status post hyponatremia. Dictated By: MERY ALEJANDRO DO NR/NTS Conf#: [id number] DID#: [id number]
[2017-03-19] MEDS: POTASSIUM CHLORIDE 250 ML IVPB SCH ×2 (10:58→14:57)
[2017-03-19] MEDS ORDERED: POTA20TA96 PO (16:35)
== END 2017-03-19 19:09 | disposition home or self-care (01) ==
LOC: E/R 22:19 → TEL 03-17 03:19
PROVIDERS: ADMIT Family Medicine; ATTEND Family Medicine
DX: N17.9 Acute kidney failure, unspecified (principal); I12.9 Hypertensive chronic kidney disease with stage 1 through stage 4 chronic kidney disease, or unspecified chronic kidney disease; N18.9 Chronic kidney disease, unspecified; E11.22 Type 2 diabetes mellitus with diabetic chronic kidney disease; E87.6 Hypokalemia; E87.1 Hypo-osmolality and hyponatremia; R55 Syncope and collapse; D64.9 Anemia, unspecified; M89.9 Disorder of bone, unspecified; Z85.6 Personal history of leukemia; R91.1 Solitary pulmonary nodule; E03.9 Hypothyroidism, unspecified
CPT/HCPCS: 70450; 71010; 71250; 76775; 80048; 80053; 80061; 81001; 81003; 82962; 83036; 83735; 84100; 84155; 84300; 84443; 84484; 85025; 85610; 85730; 93005; 93306; 93880; 96374; 96376; C9113; G0378; J3480; J7030; J1815

== ENCOUNTER 2017-10-24 08:56 | Day surgery (SDC) | END 2017-10-24 12:16 | disposition home or self-care (01) ==